=== PATIENT | female | born 1935 | race Caucasian/White ===

== ENCOUNTER 2018-06-04 09:42 | Day surgery (SDC) | payer OTHER ==
[2018-06-04] VITALS (34 sets, daily range): BP systolic 95–151; BP diastolic 12–76; PULSE 86–116; RESP 20–43
[~2018-06-04] VITALS: Ht 157.5 cm; Wt 52.6 kg
[2018-06-04] MEDS ORDERED: PROPOFOL 20 ML ONE (10:41)
[2018-06-04] MEDS ORDERED: CEFAZOLIN 2 GM/50 ML (PMX) 50 ML IVPB ONE (10:51)
--- NOTE | 2018-06-04 12:23 | NUR ---
PACU PT AWAKE NON VERBAL ON O2 MASK NO RESP DISTRESS VS STABLE IV ACCESS ON RT FORE ARM SITE CLEAR PEG SITE DSSG INTACT ABDOMINAL BINDER IN PLACE
--- NOTE | 2018-06-04 12:48 | NUR ---
PACU PT AWAKE ON O2 4LIT N/C NO RESP DISTRESS VS STABLE REPORT GIVEN TO LEONARD RN PEG PLACEWITH DSSG DRY INTACT ABDOMINAL BINDER IN PLACE
--- NOTE | 2018-06-04 13:15 | GILP ---
DATE OF PROCEDURE: NAME OF PROCEDURE: Esophagogastroduodenoscopy, percutaneous endoscopic gastrostomy tube placement. 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 Procedure at this time is performed to create access for long-term nutritional support. POSTOPERATIVE DIAGNOSIS: The patient presenting with history of difficulty in swallowing and malnutr ition. Procedure at this time is performed to create access for long-term nutritional support. DESCRIPTION OF PROCEDURE: After informed written consent was obtained, the patient was asked to lay on the left lateral side. Intravenous anesthesia was given by anesthesiologist, Dr. Lam. Whe n the patient became somnolent, the Olympus video upper endoscope was inserted into the oropharynx, t hen into the esophagus. Esophagus appeared normal. Stomach appeared normal. Duodenum appeared norm al. The scope at this time was withdrawn to the level of the gastric cavity. The anterior abdominal wall was prepared with Betadine and alcohol. Then 2 mL of 2% Xylocaine was infiltrated at the endos copic illuminating site. A 5 mm incision was made by using the scalpel. Through this incision, troc ar was inserted into the stomach and after removing the stylet, the guidewire was inserted into the s tomach. The guidewire was grabbed with a polypectomy snare and then it was brought out through the m out along with the endoscope. To this end of the guidewire, a #20 Microvasive G-tube was tied in a loop fashion and then it was brought out through the abdominal wall incision. At this time, retentio n bumper was placed over the G-tube close to the skin. Tapered end of the gastrostomy tube was cut, the adapter was placed and the procedure was terminated. PLAN: Recommend starting G-tube feeding in a.m. Dictated By: CALDERON HART/NTS Conf#: [id number] DID#: [id number] CC: TYRONE MENDEZ MD;*EndCC*
== END 2018-06-04 12:48 ==
LOC: GIL 09:42
PROVIDERS: ATTEND Internal Medicine Gastroenterology
DX: R13.10 Dysphagia, unspecified (principal); J44.9 Chronic obstructive pulmonary disease, unspecified; I48.91 Unspecified atrial fibrillation; I73.9 Peripheral vascular disease, unspecified
CPT/HCPCS: 43246; J0690